=== PATIENT | born 1975 | race Caucasian/White ===

== ENCOUNTER → 2025-02-26 11:37 | Outpatient (BNVA) | payer BC, SELFPAY | PROVIDERS: Referring Provider Nurse Practitioner; Visit Provider Internal Medicine Rheumatology | DX: M06.00 Rheumatoid arthritis without rheumatoid factor, unspecified site (principal) | CPT/HCPCS: 36415; 80076; 82306; 82565; 83520; 85025; 85651; 86140; 86200; 86480; 86704; 86803; 87340 ==